=== PATIENT | female | born 1995 | race American Indian/Alaskan Native ===

== ENCOUNTER 2018-08-06 08:08 | Emergency (ER) | payer SELFPAY ==
[2018-08-06 09:10] LABS: Bilirubin,Urine NEG (Negative); Blood,Urine NEG (Negative); Color,Urine Yellow (Yellow); Mucus,Urine 1+ /HPF; Protein,Urine <15 mg/dL mg/dL (Negative); Urobilinogen,Urine < 2.0 mg/dL (<2.0)
[2018-08-06 09:14] LABS: HCG Qualitative,Urine Negative (Negative)
[2018-08-06] MEDS ORDERED: ALUM-MAG HYDROX-SIMETH 200-200-20MG/5ML PO ONE (09:15)
[2018-08-06] MEDS ORDERED: LIDOCAINE VISCOUS 2% PO ONE (09:15)
[2018-08-06 09:30] LABS: Basophils % (Auto) 0.3 % (0.0-1.8); Eosinophils # (Auto) 0.2 K/mm3 (0.0-0.4); Eosinophils % (Auto) 1.4 % (0.0-4.3); Hematocrit 39.5 % (30.3-42.9); Hemoglobin 12.9 gm/dl (10.1-14.3); Lymphocytes # (Auto) 2.1 K/mm3 (1.2-5.4); Lymphocytes % (Auto) 19.5 % (13.4-35.0); Mean Corpuscular HGB Conc 33 % (30-34); Mean Corpuscular Hemoglobin 27 pg (28-32); Mean Corpuscular Volume 82 fl (79-97); Monocytes % (Auto) 8.8 % (0.0-7.3); Platelet Count 303 K/mm3 (140-440); Red Cell Distribution Width 14.2 % (13.2-15.2)
--- NOTE | 2018-08-06 09:32 | Emergency Department Report ---
HPI - General Chief Complaint: Abdominal Pain Time Seen by Provider: 08/06/18 09:09 - HPI HPI: 22-year-old female presents to the emergency department with complaint of abdominal pain with some associated nausea and vomiting. Has been going on for 4 days but started off intermittently and more recently became more consistent. She has generalized abdominal pain but it is worse in the upper quadrants. There has been no nausea or vomiting today but each of the previous today she had one episode of vomiting. She denies any constipation, diarrhea, vaginal bleeding or discharge, dysuria or fever. No past medical history. No primary care physician. No recent travel or sick contacts at home. She was given something to try and help her poop to see if that was her issue but she had a satisfactory bowel movement without any change in her conditions. There are no specific alleviating factors but the patient says that more recently has increased or brought on her pain. ED Past Medical Hx - Past Medical History Previous Medical History?: No - Surgical History Past Surgical History?: Yes Additional Surgical History: x 1 - Social History Smoking Status: Never Smoker Substance Use Type: None - Medications Home Medications: Home Medications Medication Instructions Recorded Confirmed Last Taken Type Famotidine [Pepcid] 20 mg PO QDAY #15 tablet 08/06/18 Unknown Rx Ondansetron [Zofran Odt] 4 mg PO Q8H PRN #10 tab.rapdis 08/06/18 Unknown Rx ED Review of Systems ROS: Stated complaint: STOMACH PAIN/PAIN WHEN BREATHING Other details as noted in HPI Comment: All other systems reviewed and negative Constitutional: denies: chills, fever Eyes: denies: eye pain, eye discharge, vision change ENT: denies: ear pain, throat pain Respiratory: denies: cough, shortness of breath, wheezing Cardiovascular: denies: chest pain, palpitations Gastrointestinal: abdominal pain, nausea, vomiting Genitourinary: denies: urgency, dysuria, discharge Musculoskeletal: denies: back pain, joint swelling, arthralgia Skin: denies: rash, lesions Neurological: denies: headache, weakness, paresthesias Physical Exam - Physical Exam Vital Signs: Vital Signs 08/06/18 08:40 Temperature 99.0 F Pulse Rate 92 H Respiratory 16 Rate Blood Pressure 112/68 O2 Sat by Pulse 100 Oximetry Physical Exam: GENERAL: The patient is well-developed well-nourished. HENT: Normocephalic. Atraumatic. Patient has moist mucous membranes. EYES: Extraocular motions are intact. Pupils equal reactive to light bilaterally. NECK: Supple. Trach is midline. CHEST/LUNGS: Clear to auscultation. There is no respiratory distress noted. HEART/CARDIOVASCULAR: Regular. There is no tachycardia. There is no murmur. ABDOMEN: Abdomen is soft. There is some generalized abdominal pain but it is worse in the upper quadrants of the abdomen. No guarding or rebound tenderness. Patient has normal bowel sounds. There is no abdominal distention. SKIN: Skin is warm and dry. NEURO: The patient is awake, alert, and oriented. The patient is cooperative. The patient has no focal neurologic deficits. The patient has normal speech. MUSCULOSKELETAL: There is no tenderness or deformity. There is no limitation range of motion. There is no evidence of acute injury. ED Course Vital Signs 08/06/18 08:40 Temperature 99.0 F Pulse Rate 92 H Respiratory 16 Rate Blood Pressure 112/68 O2 Sat by Pulse 100 Oximetry ED Medical Decision Making - Lab Data Result diagrams: 08/06/18 09:18 08/06/18 09:20 - Radiology Data Radiology results: image reviewed interpreted by me: Abdominal x-ray shows nonspecific nonobstructive bowel gas. - Medical Decision Making Patient presented with a few days of abdominal pain, worse in the upper quadrants, with some associated nausea and vomiting. At first, on examination, she does have some reproducible tenderness to palpation but she has a soft, nontoxic, nonrigid abdomen. Abdominal x-ray shows nonspecific nonobstructive bowel gas. Patient's blood count and metabolic panel and urinalysis were unremarkable and did not show any etiology for symptoms. Apparently just after the initial examination, the patient had one episode of vomiting and afterwards the symptoms basically resolved. She was given a GI cocktail for possible acid reflux. Vital signs stable throughout ED course. She was reevaluated prior to discharge and there was no real reproducible abdominal tenderness to palpation and she says she is feeling better. For this reason I did not feel that any further imaging was necessary at this time. She will be given a Zofran ODT prescription and some Pepcid to try over the next few days and was given a referral for gastroenterology. She will return to the ER with any worsening of her symptoms or any acute distress. - Differential Diagnosis gastritis, pancreatitis, colitis, cholelithiasis, cholecystitis Critical Care Time: No Critical care attestation.: If time is entered above; I have spent that time in minutes in the direct care of this critically ill patient, excluding procedure time. ED Disposition Clinical Impression: Nausea & vomiting Qualifiers: Vomiting type: unspecified Vomiting Intractability: non-intractable Qualified Code(s): R11.2 - Nausea with vomiting, unspecified Abdominal pain Qualifiers: Abdominal location: upper abdomen, unspecified Qualified Code(s): R10.10 - Upper abdominal pain, unspecified Disposition: DC- TO HOME OR SELFCARE Is pt being admited?: No Condition: Stable Instructions: Acute Nausea and Vomiting (ED), Abdominal Pain (ED) Additional Instructions: Please follow up with a primary care physician. 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 Merchant, to follow up regarding your abdominal pains. Return to the emergency Department with any worsening of your symptoms or any acute distress. Prescriptions: Famotidine [Pepcid] 20 mg PO QDAY #15 tablet Ondansetron [Zofran Odt] 4 mg PO Q8H PRN #10 tab.rapdis PRN Reason: Nausea Referrals: PRIMARY CAREMD [Primary Care Provider] - 3-5 Days AMADO MERCHANT MD [Staff Physician] - 3-5 Days Forms: Work/School Release Form(ED) Time of Disposition: 10:53
[2018-08-06 09:47] LABS: Alanine Aminotransferase 8 units/L (7-56); Albumin 4.3 g/dL (3.9-5); BUN/Creatinine Ratio 10; Blood Urea Nitrogen 7 mg/dL (7-17); Calcium 9.2 mg/dL (8.4-10.2); Hemolysis Index 4; Lipase 18 units/L (13-60)
--- NOTE | 2018-08-06 10:21 | XRay Report ---
ABDOMEN RADIOGRAPHS INDICATION: Abdominal pain. COMPARISON: None similar at this institution. FINDINGS: Frontal supine and upright abdominal radiographs demonstrate nonobstructive bowel gas pattern. No focal suspicious calcifications, pneumatosis or pneumoperitoneum. An umbilical ornament noted on one of the views. Clear visualized lung bases. Unremarkable bones. CONCLUSION: Normal abdominal radiographs, as described. Thank you for the opportunity to participate in this patient's care.
[2018-08-06 11:01] VITALS: BP 122/74
== END 2018-08-06 11:00 | disposition home or self-care (01) ==
LOC: ED 08:08
DX: R10.10 Upper abdominal pain, unspecified (principal); R11.2 Nausea with vomiting, unspecified; Z91.018 Allergy to other foods
CPT/HCPCS: 36415; 74019; 80053; 81001; 81025; 83690; 85025

== ENCOUNTER 2020-03-06 20:04 | Emergency (ER) | payer SELFPAY ==
[2020-03-06 20:23] VITALS: BP 110/69
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
== END 2020-03-06 21:15 | disposition home or self-care (01) ==
LOC: ED 20:04
DX: S16.1XXA Strain of muscle, fascia and tendon at neck level, initial encounter (principal); Z98.890 Other specified postprocedural states; Z79.2 Long term (current) use of antibiotics; Z79.899 Other long term (current) drug therapy; Z91.018 Allergy to other foods; V49.49XA Driver injured in collision with other motor vehicles in traffic accident, initial encounter; W22.11XA Striking against or struck by driver side automobile airbag, initial encounter; Y93.89 Activity, other specified; Y92.410 Unspecified street and highway as the place of occurrence of the external cause; Y99.8 Other external cause status
CPT/HCPCS: 99282